=== PATIENT | female | born 1990 | race African-American/Black ===

== ENCOUNTER 2020-06-16 13:43 | Emergency (ER) | payer SELFPAY ==
[~2020-06-16] VITALS: Ht 162.6 cm; Wt 63.5 kg
--- NOTE | 2020-06-16 13:58 | NUR ---
PT BIBRA C/O BEHAVIORAL ISSUES. PER REPORT, PT HAS HX OF SCHIZOPHRENIA AND HER NIECE CALLED 911 BECAUSE SHE WAS WALKING IN THE MIDDLE OF THE STREET WITH TRAFFIC. PT DENIES ANY SI OR HI. VS CHECKED. AWAITING MD BECKER.
[2020-06-16 13:59] VITALS: BP 131/78
--- NOTE | 2020-06-16 14:57 | NUR ---
PT REFUSING TO PROVIDE URINE SPECIMEN. DR. GASTELUM MADE AWARE. PT DENIES SI OR HI.
--- NOTE | 2020-06-16 15:13 | NUR ---
PT REFUSING BLOOD DRAW OR ANY STUDIES. DR FERNANDEZ MADE AWARE. PT WANTS TO LEAVE ED. REFUSING TO SIGN ACI AND HOMELESS WAIVER DISCHARGE.
== END 2020-06-16 15:20 | disposition home or self-care (01) ==
LOC: ER 13:48
DX: F19.10 Other psychoactive substance abuse, uncomplicated (principal); F20.9 Schizophrenia, unspecified; Z59.0 Homelessness

== ENCOUNTER 2020-06-18 18:16 | Emergency (ER) | payer OTHER ==
[~2020-06-18] VITALS: Ht 162.6 cm; Wt 63.5 kg
--- NOTE | 2020-06-18 18:35 | NUR ---
Patient came in to the er c/o suicidal thoughts, "i want to run into traffic", -HI. On room air, breathing evenly and unlabored. Kept comfortable, will continue to monitor accordingly. Sitter at bedside for constant monitoring.
--- NOTE | 2020-06-18 18:35 | NUR ---
called security for wanding
--- NOTE | 2020-06-18 18:38 | NUR ---
urine collected and sent to lab
--- NOTE | 2020-06-18 18:39 | NUR ---
security at bedside for wanding
[2020-06-18 18:43] LABS: BILIRUBIN,URINE SMALL (NEGATIVE); BLOOD, URINE Negative Ery/uL (NEGATIVE); COLOR,URINE YELLOW (YELLOW); LEUKOCYTE ESTERASE ,URINE Moderate (NEGATIVE); NITRITE, URINE Positive (NEGATIVE); PH,URINE 6.5 (5.0-8.0); PROTEIN,URINE 30 mg/dl (NEGATIVE); UGLUCOSE Negative (NEGATIVE)
[2020-06-18 18:50] LABS: BASOPHILS % (AUTO) 0.3 % (0.0-2.0); EOSINOPHILS % (AUTO) 1.8 % (0.0-6.0); HEMATOCRIT 39 % (33-45); HEMOGLOBIN 12.4 g/dL (11.5-14.8); LYMPHOCYTES # (AUTO) 2.4 /CMM (0.8-4.8); LYMPHOCYTES % (AUTO) 35.3 % (20.0-44.0); MEAN CORPUSCULAR HGB CONC 32 g/dl (31.0-36.0); MEAN CORPUSCULAR VOLUME 85 fL (82-100); MONOCYTES # (AUTO) 0.7 /CMM (0.1-1.30); MONOCYTES % (AUTO) 9.8 % (2.0-12.0); NEUTROPHILS # (AUTO) 3.7 /CMM (1.8-8.9); NEUTROPHILS % (AUTO) 52.8 % (43.0-81.0); PLATELET COUNT (AUTO) 290 /CMM (150-450); RED BLOOD CELL COUNT(AUTO) 4.52 MIL/uL (4.0-5.2); WHITE BLOOD COUNT (AUTO) 6.9 K/uL (4.3-11.0)
[2020-06-18 18:57] LABS: CARBON DIOXIDE 23 mmol/L (21-32); CHLORIDE 102 mmol/L (98-107); GLUCOSE 164 mg/dL (74-106); POTASSIUM 3.5 mmol/L (3.5-5.1); SODIUM SERUM 138 mmol/L (136-145); UREA NITROGEN, BLOOD 16 mg/dL (7-18)
[2020-06-18 19:03] LABS: ALANINE AMINOTRANSFERASE 15 U/L (12-78); ALBUMIN 3.3 g/dL (3.4-5.0); ALCOHOL, BLOOD 4 mg/dL (0-0); ALKALINE PHOSPHATASE 87 U/L (46-116); ASPARTATE AMINOTRANSFERASE 14 U/L (15-37); BILIRUBIN,DIRECT 0.2 mg/dL (0.0-0.2); BILIRUBIN,TOTAL 0.7 mg/dL (0.2-1.0); TOTAL PROTEIN, SERUM 7.4 g/dL (6.4-8.2)
[2020-06-18 19:04] LABS: ACETAMINOPHEN < 2 ug/ml (10-30)
[2020-06-18 19:08] LABS: BACTERIA,URINE 3+ /HPF (None Seen); RBC,URINE NONE SEEN /HPF (0-2); SQUAMOUS EPITHELIAL CELL,UR Few /HPF (None Seen); WBC,URINE 21-50 /HPF (0-3)
[2020-06-18] MEDS ORDERED: CEFTRIAXONE 1 G VIAL IM ONE (19:30)
[2020-06-18] MEDS ORDERED: OLANZAPINE 10 MG VIAL IM ONE ×2 (19:30→20:26)
[2020-06-18] MEDS ORDERED: CEFTRIAXONE 1 G VIAL ONE (20:26)
[2020-06-18] MEDS ORDERED: LIDOCAINE /MPF 1% VIAL 5 ML VIAL ONE (20:26)
--- NOTE | 2020-06-18 20:55 | NUR ---
CLINICAL INFORMATION FAXED TO [facility]
--- NOTE | 2020-06-19 03:20 | NUR ---
PT ACCEPTED TO [facility] MD: DR. CHILD/ DR. TORRES NUMBER FOR REPORT: [phone] EXT [id number] Addendum: 06/19/20 at 0344 by ELISE BED ASSIGNMENT [id number]
--- NOTE | 2020-06-19 03:25 | NUR ---
CALLED CALL THE [facility] FOR TRANSPORTATION ([facility]ATION [id number]) [phone]
--- NOTE | 2020-06-19 03:45 | NUR ---
REPORT GIVEN TO JEANIE JONES FROM [facility]
--- NOTE | 2020-06-19 05:38 | NUR ---
REPORT GIVEN TO [facility] [phone] FOR TRANSPORTATION [facility]
[2020-06-19 05:46] VITALS: BP 128/74
== END 2020-06-19 05:47 ==
LOC: ER 18:21
DX: R45.851 Suicidal ideations (principal); N30.00 Acute cystitis without hematuria; F19.10 Other psychoactive substance abuse, uncomplicated; Z20.828 Contact with and (suspected) exposure to other viral communicable diseases; F20.9 Schizophrenia, unspecified
CPT/HCPCS: 36415; 80048; 80076; 80299; 80307; 80320; 81001; 84703; 85025; 87077; 87086; 87186; 87426; 96372 ×2; 99285; C9803; J0696; J3490 ×2; J7030; G0480